=== PATIENT | female | born 1960 | race Caucasian/White ===

== ENCOUNTER → 2017-05-23 | Outpatient (REF) | payer MEDICARE, BC, OTHER ==
[2017-05-25 14:10] LABS: HPV HYBRID CAPTURE II Negative (Negative)
== END ==
LOC: M LAB REF 19:00
DX: Z12.4 Encounter for screening for malignant neoplasm of cervix (principal)
CPT/HCPCS: G0123

== ENCOUNTER → 2018-07-23 | Outpatient (REF) | payer MEDICARE, OTHER | LOC: M SFHCPLAZ 12:56 | PROVIDERS: ATTEND Internal Medicine Rheumatology | DX: M32.9 Systemic lupus erythematosus, unspecified (principal); M19.90 Unspecified osteoarthritis, unspecified site; Z53.8 Procedure and treatment not carried out for other reasons ==

== ENCOUNTER → 2018-08-11 | Outpatient (REF) | payer BC, OTHER, MEDICARE ==
--- NOTE | 2018-08-11 13:47 | REP ---
Outside film interpretation: Left shoulder, July 25, 2018, [facility]. History: Arthralgia. Findings: Three views of the left shoulder are presented dated July 25, 2018. The glenohumeral and acromioclavicular joints are normally aligned. Periarticular soft tissues are unremarkable. Overall mineralization pattern is unremarkable. Impression: No significant abnormality. Outside film interpretation. Bilateral hand series: Four views. History: Arthralgias. Findings: Four views of both hands are presented. Overall mineralization pattern is felt to be normal. There are mild osteoarthritic changes with spurs at the DIP joints of the fingers and the IP joints of the thumbs. There are early central subchondral erosions involving the DIP joint of the ring and small finger on the right and to an even lesser extent, the DIP joint of the small finger on the left. No marginal erosions are seen. I do not see fusiform swelling. There is minimal swelling at the DIP joints. 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 Electronically Signed by Valentin Fairchild MD 08/11/2018 01:59 P
== END ==
LOC: M RAD 12:20
PROVIDERS: ATTEND Internal Medicine Rheumatology
DX: M19.90 Unspecified osteoarthritis, unspecified site (principal)

== ENCOUNTER → 2019-10-28 | Outpatient (REF) | payer MEDICARE, OTHER | LOC: M SFHCWAGY 18:07 | PROVIDERS: ATTEND Obstetrics & Gynecology | DX: Z12.4 Encounter for screening for malignant neoplasm of cervix (principal) | CPT/HCPCS: 87624; G0101; G0123 ==

== ENCOUNTER → 2019-12-16 | Outpatient (CLI) | payer MEDICARE, BC ==
--- NOTE | 2020-01-12 15:09 | REPMRS ---
Patient History The patient states she had a clinical breast exam in 10/2019. Patient is postmenopausal. Family history of unknown cancer at age 64 in father, unknown cancer in daughter, unknown cancer in paternal grandfather. 3D TOMOSYNTHESIS WAS PERFORMED. The Nora Raines lifetime risk for breast cancer is 8.9%. 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 THE IMAGES ARE MADE AVAILABLE FOR INTERPRETATION 01/12/2020. Digital Woman Screen Mammo: December 16, 2019 - Exam #: [id number] Bilateral CC and MLO view(s) were taken. Technologist: Earline Eldridge, Technologist Prior study comparison: 2019, bilateral digital mammo screening bilat, performed at [facility]. FINDINGS: The breast tissue is heterogeneously dense. This may lower the sensitivity of mammography. There has been no change in the appearance of the mammogram from the prior studies. There is a moderate amount of residual fibroglandular tissue which is fairly symmetric. There is no interval development of dominant mass, areas of architectural distortion, or clustered microcalcification typical of malignancy. Assessment: BI-RADS/ACR category 1 mammogram. Negative Mammogram. Recommendation Routine screening mammogram in 1 year (for women over age 40). This mammogram was interpreted with the aid of an FDA-approved computer-aided dectection system. Electronically Signed By: Naman Atkinson MD 01/12/20 [id number]
== END ==
LOC: M WHC 17:45
PROVIDERS: ATTEND Obstetrics & Gynecology
DX: Z12.31 Encounter for screening mammogram for malignant neoplasm of breast (principal); Z78.0 Asymptomatic menopausal state; Z80.8 Family history of malignant neoplasm of other organs or systems
CPT/HCPCS: 77063; 77067; G0463

== ENCOUNTER → 2020-04-21 | Outpatient (CLI) | payer MEDICARE, BC ==
[2020-04-21 11:28] LABS: HEMOGLOBIN 12.2 g/dl (12.0-15.5); MEAN CORPUSCULAR HEMOGLOBIN 29.8 pg (27.0-33.0); MEAN CORPUSCULAR HGB CONC 32.1 g/dl (32.0-36.5); MEAN CORPUSCULAR VOLUME 92.7 fl (80.0-96.0); PLATELET COUNT, AUTOMATED 308 10^3/uL (150-450); WHITE BLOOD COUNT 5.4 10^3/uL (4.0-10.0)
[2020-04-21 11:43] LABS: INR 0.92; PROTHROMBIN TIME 12.5 SECONDS (12.5-14.3)
[2020-04-21 12:12] LABS: HEMOGLOBIN A1c 5.9 %
[2020-04-21 12:44] LABS: ALBUMIN 3.7 GM/DL (3.2-5.2); ALT/SGPT 33 U/L (12-78); BILIRUBIN,TOTAL 0.3 MG/DL (0.2-1.0); BLOOD UREA NITROGEN 10 MG/DL (7-18); CALCIUM LEVEL 9.8 MG/DL (8.5-10.1); CARBON DIOXIDE LEVEL 32 MEQ/L (21-32); CHLORIDE LEVEL 98 MEQ/L (98-107); CHOLESTEROL LEVEL 271 MG/DL (<200); CHOLESTEROL RISK RATIO 5.018 (<5); CREATININE FOR GFR 0.84 MG/DL (0.55-1.30); GLOMERULAR FILTRATION RATE > 60.0 (>51); GLUCOSE, FASTING 145 MG/DL (70-100); HDL CHOLESTEROL 54 MG/DL (>40); LDL CHOLESTEROL 170 MG/DL (<100); NON-HDL-C 217 MG/DL; POTASSIUM SERUM 3.6 MEQ/L (3.5-5.1); SODIUM LEVEL 137 MEQ/L (136-145); THYROID STIMULATING HORMONE 0.075 uIU/ML (0.358-3.740); TOTAL PROTEIN 7.4 GM/DL (6.4-8.2); TRIGLYCERIDES LEVEL 237 MG/DL (<150)
--- NOTE | 2020-04-21 14:39 | REP ---
INDICATION: HTN, FATIGUE, PRE-OP. COMPARISON: 02/01/2016 TECHNIQUE: PA and lateral views FINDINGS: The lung moore are clear. The cardiac size is normal. The hortensia, mediastinum, and skeletal structures are unremarkable. There is no interval change. A cervical spine stabilization plate is again incidentally noted. IMPRESSION: Negative PA and lateral chest. There is no interval change. <Electronically signed by Naman Avelar > 04/21/20 [id number]
--- NOTE | 2020-04-21 22:48 | ECGEPIP ---
[facility] Test Date: 2020-04-21 Pat Name: VIRGINIA BAXTER Department: Room: - Gender: Female Solderer Dipper: JEREMÍAS : 1960 Requested By: Celsa Bello Order Number: [id number] Reading MD: Brady Dorsey Measurements Intervals [place] Rate: 76 P: 35 WV: 190 QRS: 56 QRSD: 91 T: 56 QT: 391 QTc: 440 Interpretive Statements SINUS RHYTHM Poor R wave progression. No significant change compared with 02/01/2016. Electronically Signed on 04-21-2020 22:47:49 EST by Brady Dorsey
== END ==
LOC: M LAB 10:26
PROVIDERS: ATTEND Family Medicine
DX: Z01.818 Encounter for other preprocedural examination (principal); I10 Essential (primary) hypertension; R53.83 Other fatigue; Z79.01 Long term (current) use of anticoagulants; R73.09 Other abnormal glucose

== ENCOUNTER → 2021-01-13 | Outpatient (REF) | payer MEDICARE, OTHER | LOC: M SFHCWAGY 19:09 | PROVIDERS: ATTEND Obstetrics & Gynecology | DX: Z12.4 Encounter for screening for malignant neoplasm of cervix (principal) ==

== ENCOUNTER → 2021-01-13 | Outpatient (CLI) | payer MEDICARE, OTHER ==
[2021-01-13 15:29] LABS: HEMATOCRIT 39.1 % (36.0-47.0); HEMOGLOBIN 12.9 g/dl (12.0-15.5); MEAN CORPUSCULAR HEMOGLOBIN 30.1 pg (27.0-33.0); MEAN CORPUSCULAR VOLUME 91.1 fl (80.0-96.0); PLATELET COUNT, AUTOMATED 305 10^3/uL (150-450); RED BLOOD COUNT 4.29 10^6/uL (4.00-5.40); WHITE BLOOD COUNT 8.3 10^3/uL (4.0-10.0)
[2021-01-13 16:06] LABS: ALBUMIN 3.6 GM/DL (3.2-5.2); ALT/SGPT 23 U/L (12-78); BILIRUBIN,TOTAL 0.2 MG/DL (0.2-1.0); BLOOD UREA NITROGEN 7 MG/DL (7-18); CALCIUM LEVEL 9.7 MG/DL (8.5-10.1); CARBON DIOXIDE LEVEL 34 MEQ/L (21-32); CHLORIDE LEVEL 100 MEQ/L (98-107); CHOLESTEROL LEVEL 251 MG/DL (<200); CHOLESTEROL RISK RATIO 4.254 (<5); CREATININE FOR GFR 0.75 MG/DL (0.55-1.30); GLOMERULAR FILTRATION RATE > 60.0 (>51); GLUCOSE, FASTING 112 MG/DL (70-100); HDL CHOLESTEROL 59 MG/DL (>40); LDL CHOLESTEROL 148 MG/DL (<100); NON-HDL-C 192 MG/DL; POTASSIUM SERUM 3.8 MEQ/L (3.5-5.1); SODIUM LEVEL 140 MEQ/L (136-145); THYROID STIMULATING HORMONE 0.427 uIU/ML (0.358-3.740); TOTAL PROTEIN 7.6 GM/DL (6.4-8.2); TRIGLYCERIDES LEVEL 220 MG/DL (<150)
[2021-01-13 16:07] LABS: TOTAL 25(OH) VITAMIN D 32.9 NG/ML (30.0-100.0)
[2021-01-13 18:08] LABS: HEMOGLOBIN A1c 6.1 %
== END ==
LOC: M LAB 15:01
PROVIDERS: ATTEND Family Medicine
DX: Z12.31 Encounter for screening mammogram for malignant neoplasm of breast (principal); Z12.4 Encounter for screening for malignant neoplasm of cervix; Z78.0 Asymptomatic menopausal state; D64.9 Anemia, unspecified; R53.83 Other fatigue; E03.9 Hypothyroidism, unspecified; Z79.899 Other long term (current) drug therapy; Z80.8 Family history of malignant neoplasm of other organs or systems; Z86.018 Personal history of other benign neoplasm
CPT/HCPCS: 36415; 77063; 77067; 80053; 80061; 82306; 83036; 84443; 85027; G0101; G0123

== ENCOUNTER → 2021-01-13 | Outpatient (CLI) | payer MEDICARE, OTHER ==
--- NOTE | 2021-01-13 15:37 | REPMRS ---
Patient History The patient states she had a clinical breast exam in January 2021 Patient is postmenopausal. Family history of unknown cancer at age 64 in father, unknown cancer in daughter, unknown cancer in paternal grandfather. 2 benign excisional biopsies of the right breast, 1994. Benign excisional biopsy of the right breast, 1992. Patient states no breast complaints today. Patient has signed MRS History Sheet. Digital Woman Screen Mammo: January 13, 2021 - Exam #: [id number] Bilateral CC and MLO view(s) were taken. Technologist: Sita Gloria, Technologist Prior study comparison: December 16, 2019, bilateral digital woman screen mammo performed at [facility]. December 24, 2017, bilateral digital mammo screening bilat, performed at [facility]. October 13, 2008, bilateral digital mammo screening bilat, performed at [facility]. FINDINGS: The breast tissue is almost entirely fat. The Volpara volumetric breast density category is: A. There has been no change in the appearance of the mammogram from the prior studies. There is no interval development of dominant mass, architectural distortion, or grouped microcalcification typical of malignancy. 3-D tomosynthesis shows no additional findings. Assessment: BI-RADS/ACR category 1 mammogram. Negative Mammogram. Recommendation Routine screening mammogram of both breasts in 1 year (for women over age 40). This patient's [facility] Lifetime Breast Cancer RIsk is estimated at 8.7 %. This mammogram was interpreted with the aid of an FDA-approved computer-aided dectection system. Electronically Signed By: Tho Fairchild MD 01/13/21 [id number]
== END ==
LOC: M WHC 13:22
PROVIDERS: ATTEND Obstetrics & Gynecology
DX: Z12.31 Encounter for screening mammogram for malignant neoplasm of breast (principal); Z78.0 Asymptomatic menopausal state; Z80.8 Family history of malignant neoplasm of other organs or systems; Z86.018 Personal history of other benign neoplasm

== ENCOUNTER → 2021-05-03 | Outpatient (CLI) | payer MEDICARE, BC, OTHER ==
--- NOTE | 2021-05-03 18:09 | REPVR ---
PROCEDURE INFORMATION: Exam: MR Head Without Contrast Exam date and time: 05/03/2021 8:53 AM Age: 60 years old Clinical indication: Pain; Headache; Additional info: Rae's/ dizziness TECHNIQUE: Imaging protocol: MR of the head without contrast. COMPARISON: No relevant prior studies available. FINDINGS: Brain: Few mild scattered nonspecific T2/FLAIR hyperintensities of the periventricular and deep subcortical white matter, most likely secondary to chronic small vessel ischemic change. No intracranial hemorrhage or extra-axial fluid collection. No evidence of mass effect or midline shift. No restricted diffusion to suggest acute infarct. Cerebral ventricles: No ventriculomegaly. Bones/joints: Unremarkable. Paranasal sinuses: Normal as visualized. No acute sinusitis. Mastoid air cells: Partial opacification of bilateral mastoid air cells. Orbital cavity: Unremarkable. Soft tissues: Unremarkable. IMPRESSION: 1. No acute intracranial pathology. 2. Partial opacification of bilateral mastoid air cells. 3. Chronic findings, as above. Electronically signed by: Artem Evans On 05/03/2021 18:09:20 PM
== END ==
LOC: M PLAIMG 08:07
PROVIDERS: ATTEND Family Medicine
DX: R50.9 Fever, unspecified (principal); H74.93 Unspecified disorder of middle ear and mastoid, bilateral

== ENCOUNTER → 2021-06-20 | Outpatient (CLI) | payer MEDICARE, BC, OTHER | LOC: M PLAIMG 12:44 | PROVIDERS: ATTEND Nurse Practitioner Family | DX: R91.1 Solitary pulmonary nodule (principal); R06.02 Shortness of breath ==

== ENCOUNTER → 2021-12-01 | Outpatient (CLI) | payer MEDICARE, BC, OTHER ==
[2021-12-01 10:40] LABS: HEMATOCRIT 37.5 % (36.0-47.0); HEMOGLOBIN 12.2 g/dl (12.0-15.5); MEAN CORPUSCULAR HEMOGLOBIN 29.9 pg (27.0-33.0); MEAN CORPUSCULAR HGB CONC 32.5 g/dl (32.0-36.5); MEAN CORPUSCULAR VOLUME 91.9 fl (80.0-96.0); PLATELET COUNT, AUTOMATED 212 10^3/uL (150-450); RED BLOOD COUNT 4.08 10^6/uL (4.00-5.40); WHITE BLOOD COUNT 5.2 10^3/uL (4.0-10.0)
[2021-12-01 13:03] LABS: ALBUMIN 3.4 GM/DL (3.2-5.2); ALT/SGPT 41 U/L (12-78); BILIRUBIN,TOTAL 0.3 MG/DL (0.2-1.0); BLOOD UREA NITROGEN 13 MG/DL (7-18); CALCIUM LEVEL 8.9 MG/DL (8.5-10.1); CARBON DIOXIDE LEVEL 31 MEQ/L (21-32); CHLORIDE LEVEL 102 MEQ/L (98-107); CHOLESTEROL LEVEL 188 MG/DL (<200); CHOLESTEROL RISK RATIO 2.937 (<5); CREATININE FOR GFR 0.77 MG/DL (0.55-1.30); GLOMERULAR FILTRATION RATE > 60.0 (>51); GLUCOSE, FASTING 123 MG/DL (70-100); HDL CHOLESTEROL 64 MG/DL (>40); LDL CHOLESTEROL 84 MG/DL (<100); NON-HDL-C 124 MG/DL; POTASSIUM SERUM 3.4 MEQ/L (3.5-5.1); SODIUM LEVEL 138 MEQ/L (136-145); THYROID STIMULATING HORMONE 0.025 uIU/ML (0.358-3.740); TOTAL 25(OH) VITAMIN D 66.3 NG/ML (30.0-100.0); TOTAL PROTEIN 6.6 GM/DL (6.4-8.2); TRIGLYCERIDES LEVEL 198 MG/DL (<150)
[2021-12-01 14:55] LABS: HEMOGLOBIN A1c 6.6 %
== END ==
LOC: M RAD 09:40
PROVIDERS: ATTEND Family Medicine
DX: I10 Essential (primary) hypertension (principal); E11.9 Type 2 diabetes mellitus without complications

== ENCOUNTER → 2022-02-12 | Outpatient (REF) | payer MEDICARE, BC, OTHER | LOC: M SFHCWAGY 18:08 | PROVIDERS: ATTEND Obstetrics & Gynecology | DX: Z12.4 Encounter for screening for malignant neoplasm of cervix (principal) | CPT/HCPCS: 87624; G0123 ==

== ENCOUNTER → 2022-05-15 | Outpatient (CLI) | payer MEDICARE, BC, OTHER | LOC: M WHC 14:37 | PROVIDERS: ATTEND Family Medicine | DX: M81.0 Age-related osteoporosis without current pathological fracture (principal); M85.851 Other specified disorders of bone density and structure, right thigh ==

== ENCOUNTER → 2023-03-27 | Outpatient (CLI) | payer MEDICARE, BC, OTHER | LOC: M WHC 11:43 | PROVIDERS: ATTEND Nurse Practitioner Family | DX: Z12.31 Encounter for screening mammogram for malignant neoplasm of breast (principal) ==

== ENCOUNTER → 2023-06-10 | Outpatient (CLI) | payer MEDICARE, BC, OTHER | LOC: M WHC 09:46 | PROVIDERS: ATTEND Family Medicine | DX: M85.851 Other specified disorders of bone density and structure, right thigh (principal); M85.852 Other specified disorders of bone density and structure, left thigh ==

== ENCOUNTER → 2023-06-10 | Outpatient (CLI) | payer MEDICARE, BC, OTHER | LOC: M PLAIMG 10:40 | PROVIDERS: ATTEND Family Medicine | DX: R91.1 Solitary pulmonary nodule (principal); M47.814 Spondylosis without myelopathy or radiculopathy, thoracic region; Z98.1 Arthrodesis status; Z90.49 Acquired absence of other specified parts of digestive tract; M85.851 Other specified disorders of bone density and structure, right thigh; M85.852 Other specified disorders of bone density and structure, left thigh ==

== ENCOUNTER → 2024-05-11 | Outpatient (CLI) | payer MEDICARE, BC | LOC: M RAD 11:07 | PROVIDERS: ATTEND Family Medicine | DX: N20.0 Calculus of kidney (principal); R10.30 Lower abdominal pain, unspecified ==

== ENCOUNTER → 2024-06-02 | Outpatient (CLI) | payer MEDICARE, BC | LOC: M WHC 12:00 | PROVIDERS: ATTEND Nurse Practitioner Family | DX: Z12.31 Encounter for screening mammogram for malignant neoplasm of breast (principal); R92.313 Mammographic fatty tissue density, bilateral breasts ==

== ENCOUNTER → 2025-01-18 | Outpatient (REF) | payer MEDICARE, BC | LOC: M PLALAB 08:31 | PROVIDERS: ATTEND Specialist | DX: N81.2 Incomplete uterovaginal prolapse (principal) ==

== ENCOUNTER → 2025-04-01 | Outpatient (REF) | payer MEDICARE, BC | LOC: M SFHCPLAZ 15:18 | PROVIDERS: ATTEND Family Medicine | DX: Z53.9 Procedure and treatment not carried out, unspecified reason (principal) ==

== ENCOUNTER → 2025-04-06 | Outpatient (CLI) | payer MEDICARE, BC ==
[2025-04-06 18:44] LABS: CHOLESTEROL LEVEL 149.0 MG/DL (<200); CHOLESTEROL RISK RATIO 2.79 (<5); LDL CHOLESTEROL 67.6 MG/DL (<100); NON-HDL-C 95.6 MG/DL; TRIGLYCERIDES LEVEL 140.0 MG/DL (<150)
[2025-04-06 18:46] LABS: FREE T4 1.1 NG/DL (0.89-1.76)
== END ==
LOC: M PLALAB 14:11
PROVIDERS: ATTEND Family Medicine
DX: E03.9 Hypothyroidism, unspecified (principal); E78.00 Pure hypercholesterolemia, unspecified

== ENCOUNTER → 2025-04-30 | Outpatient (CLI) | payer MEDICARE, BC ==
[~2025-04-30] MED LIST: AZAT50TA37 PO; COLA100C5 PO; IBUP600T42 PO; LEUC10TA PO; LEVO50TA5 PO; NEBI5TAB2 PO; ONDA-83 PO; OXYC1TAB23 PO; PHEN-491 PO; POTA-151 PO; ROSU20TA86 PO; VERA40TA PO
[2025-04-30 13:57] LABS: BASO # 0.0 10^3/uL (0.0-0.2); BASO % 0.8 % (0.0-1.0); EOS # 0.2 10^3/uL (0.0-0.5); EOS % 2.9 % (0.0-3.0); LYMPH # 1.5 10^3/uL (1.5-5.0); LYMPH % 28.9 % (24.0-44.0); MONO # 0.6 10^3/uL (0.0-0.8); MONO % 10.5 % (2.0-8.0); NEUTROPHILS # 3.0 10^3/uL (1.5-8.5); NEUTROPHILS % 56.7 % (36.0-66.0); PLATELET COUNT, AUTOMATED 249 10^3/uL (150-450)
[2025-04-30 14:10] LABS: CALCIUM LEVEL 9.1 MG/DL (8.3-10.6); CARBON DIOXIDE LEVEL 32.0 MMOL/L (20-31); CHLORIDE LEVEL 102.0 MMOL/L (98-107); CREATININE FOR GFR 0.81 MG/DL (0.55-1.30); GLOMERULAR FILTRATION RATE 81.5 (>45); POTASSIUM SERUM 3.9 MMOL/L (3.5-5.1); SODIUM LEVEL 141.0 MMOL/L (136-145)
== END ==
LOC: M PLALAB 09:23
PROVIDERS: ATTEND Student in an Organized Health Care Education/Training Program
DX: Z01.818 Encounter for other preprocedural examination (principal)